=== PATIENT | male | born 1990 | race Asian ===

== ENCOUNTER 2025-04-05 09:17 | Emergency (ER) | payer MEDICAID, OTHER ==
[~2025-04-05] VITALS: Ht 172.7 cm; Wt 79.4 kg
[2025-04-05] MEDS: IV LR 1000 ML 1,000 ML BAG IV ONE (09:58)
[2025-04-05 10:11] LABS: PLATELET COUNT (AUTO) 268 K/uL (150-450); RED BLOOD CELL COUNT(AUTO) 5.82 MIL/uL (4.5-6.0); RED CELL DISTRIBUTION WIDTH 13.2 % (11.5-15.0); WHITE BLOOD COUNT (AUTO) 5.0 K/uL (4.3-11.0)
[2025-04-05 10:19] LABS: CALCIUM, SERUM 8.5 mg/dL (8.5-10.1); CREATININE 1.6 mg/dL (0.6-1.3); SODIUM SERUM 138 mmol/L (136-145); UREA NITROGEN, BLOOD 16 mg/dL (7-18)
[2025-04-05 10:25] LABS: ASPARTATE AMINOTRANSFERASE 20 U/L (15-37); TOTAL PROTEIN, SERUM 7.2 g/dL (6.4-8.2)
[2025-04-05 10:27] LABS: ALCOHOL, BLOOD < 3 mg/dL (0-10)
[2025-04-05 10:43] LABS: APPEARANCE,URINE CLEAR (CLEAR); BLOOD, URINE NEGATIVE Ery/uL (NEGATIVE); LEUKOCYTE ESTERASE ,URINE NEGATIVE (NEGATIVE); NITRITE, URINE NEGATIVE (NEGATIVE); UGLUCOSE NEGATIVE (NEGATIVE)
[2025-04-05 11:07] LABS: AMPHETAMINE, URINE NEGATIVE (NEGATIVE); BARBITURATE, URINE NEGATIVE (NEGATIVE); COCCAINE, URINE NEGATIVE (NEGATIVE); OPIATE, URINE NEGATIVE (NEGATIVE)
[2025-04-05 11:08] LABS: BENZODIAZEPINE, URINE POSITIVE (NEGATIVE); CANNABINOID, URINE POSITIVE (NEGATIVE)
[2025-04-05 11:21] LABS: ADD URINE CULTURE NO; HYALINE CASTS, URINE Few /LPF (None Seen); SQUAMOUS EPITHELIAL CELL,UR None Seen /HPF (None Seen)
[2025-04-05 19:05] VITALS: BP 118/81; TEMP 98.2; O2SAT 98
== END 2025-04-05 19:11 | disposition home or self-care (01) ==
LOC: ER 09:35
DX: R41.82 Altered mental status, unspecified (principal); F12.90 Cannabis use, unspecified, uncomplicated; R45.1 Restlessness and agitation; R73.9 Hyperglycemia, unspecified; R07.89 Other chest pain
CPT/HCPCS: 99285; 96360; 93005; 71045; 70450; 85025; 80048; 80076; 81001; 36415; 84443; 84484; 82962; 80320; 80307; J7120 ×2; G0480